=== PATIENT | male | born 1975 | race African-American/Black ===

== ENCOUNTER 2020-08-20 11:58 | Emergency (ER) | payer OTHER ==
[~2020-08-20] VITALS: Ht 182.9 cm; Wt 96.2 kg
[~2020-08-20 11:58] MED LIST: ATORVASTATIN CA10 MG PO; AZOR 10-20 MG1 EACH PO; BACTRIM DS TAB1 EACH PO; CLONIDINE HCL0.1 M1 PO; EXCEDRIN CAPLE1 EACH PO; FISH OIL 1,001000 M2 PO; IBUPROFEN 800800 MG PO; IMDUR 30 MG TAB30 M1 PO; KEFLEX500 MG PO; LO-DOSE ASPIRIN81 M1 PO; NITROGLYCERIN0.4 MG SL; NOHOMEMEDICATIONS; NORCO 5-325 TA1 EACH PO; PROTONIX40 M1 PO; ROBAXIN500 MG PO; TOPROL XL100 MG PO; TOPROL XL50 MG PO; VITAMIN D1000 UNI1 PO; ZPAK PO
[2020-08-20 15:26] LABS: ABSOLUTE BASOPHILS 0.1 thou/uL (0.0-0.2); ABSOLUTE EOSINOPHILS 0.2 thou/uL (0.0-0.7); ABSOLUTE LYMPHOCYTES 3.9 thou/uL (0.8-5.3); ABSOLUTE MONOCYTES 1.3 thou/uL (0.0-1.2); ABSOLUTE NEUTROPHILS 6.4 thou/uL (1.6-8.1); BASOPHILS 1.1 %; EOSINOPHILS 1.9 %; HEMATOCRIT 42.1 % (42.0-52.0); LYMPHOCYTES 32.5 %; MCH 32.5 pg (26.0-34.0); MCHC 35.6 g/dL (28.0-37.0); MCV 91.3 fL (80.0-100.0); MONOCYTES 10.5 %; MPV 6.6 fl. (7.2-11.1); NUCLEATED RBCS 0 /100WBC; PLATELET COUNT* 359 thou/uL (150-400); RBC 4.61 mil/uL (4.50-6.00); RDW-CV 14.1 % (10.5-14.5)
[2020-08-20 15:32] LABS: CALCIUM 8.5 mg/dL (8.5-10.1); POTASSIUM 3.1 mmol/L (3.5-5.1)
[2020-08-20] MEDS ORDERED: ANUSOL-HC25 MG RECTAL (17:26)
[2020-08-20] MEDS ORDERED: MIRALAX119 GM PO (17:26)
[2020-08-20] MEDS ORDERED: VIBRAMYCIN 100100 MG PO (17:26)
[2020-08-20] MEDS ORDERED: HYDROCODON-ACE1 EAC7 PO (17:32)
[2020-08-20 17:40] VITALS: BP 100/39
== END 2020-08-20 17:43 | disposition home or self-care (01) ==
LOC: M.ERS 11:58
PROVIDERS: Nurse Practitioner Psychiatric/Mental Health
DX: K62.89 Other specified diseases of anus and rectum (principal); E87.6 Hypokalemia; I10 Essential (primary) hypertension; E78.5 Hyperlipidemia, unspecified; Z88.8 Allergy status to other drugs, medicaments and biological substances